=== PATIENT | male | born 1945 | race Caucasian/White ===

== ENCOUNTER 2017-08-10 19:45 | Inpatient (IN) | payer OTHER ==
[~2017-08-10] VITALS: Ht 177.8 cm; Wt 89.8 kg
--- NOTE | ~2017-08-10 | HC ---
[facility] [place] [address] CONSULTATION Name: ALLAN WAY Room #: 243-P [facility] IN M.R.#: [id number] Admission: 08/10/17 Attend Phys: Ellyn Xavier Discharge: 08/12/17 Date of : 41 Report #: [id number] THIS REPORT FOR: //name// CC: Andrew Sandoval REASON FOR CONSULTATION: Elevated creatinine. REASON FOR PRESENTATION: Transferred from [facility] for shortness of breath and some regular heart issues. HISTORY OF PRESENT ILLNESS: The patient is a 71-year-old who was at [facility] and then transferred to [place]. Apparently, he presented to [facility] with some pulmonary symptoms and ended up having a thoracentesis with a chest tube. The pleural studies were consistent with an exudative pleural effusion. I do not have the exact details of the results. I do not have the cytology. As I have stated, he had a right chest tube placed and was transferred to [place] for further evaluation. CT actually revealed numerous pulmonary nodules of unknown significance along with hydropneumothorax. This also showed lymph nodes. He was on the hypertensive side. I do not know what his previous baseline creatinine is; however, on presentation, he was found to have an elevated creatinine. The patient has admitted to poor health in the last couple of years. He also admitted to weight loss over the last few years. He is known to have a neurogenic bladder for which he uses self-catheterizations. He is also known to have sarcoidosis, as he stated. PAST MEDICAL HISTORY: 1. Cardiomyopathy with ejection fractions of around 20%. 2. Sarcoidosis. 3. Hypertension. 4. Diabetes mellitus. 5. Chronic myelocytic leukemia. 6. Chronic kidney disease. 7. Sacral wounds. 8. Bladder cancer. 9. Neurogenic bladder. PAST SURGICAL HISTORY: 1. Tonsillectomy. 2. Adenoidectomy. 3. Appendectomy. 4. Pacemaker. ALLERGIES: No known drug allergies. MEDICATIONS ON PRESENTATION: [facility] [address] [place] [address] CONSULTATION Name: ALLAN WAY Room #: [facility]..#: [id number] Admission: 08/10/17 Attend Phys: Ellyn Xavier Discharge: 08/12/17 Date of : 41 Report #: [id number] 1. Paxil. 2. Lasix. 3. Zantac. 4. Losartan. 5. Amiodarone. 6. Pulmicort. 7. Zyvox. 8. Lipitor. SOCIAL HISTORY: He has been at [facility] and then moved to [place]. He used to smoke cigar. He is an ex-cigarette smoker for about 12 years. REVIEW OF SYSTEMS: The patient is currently lethargic and is not able to provide me with the review of system. PHYSICAL EXAMINATION: GENERAL: He is lethargic. VITAL SIGNS: Blood pressure of 97/53. Pulse rate is 81. HEAD AND NECK: Using his accessory muscles. CHEST: Crackles bilaterally, with decreased air entry. Chest tube in place. CARDIOVASCULAR: No rub. Pacemaker in place. ABDOMEN: Soft, nontender. LOWER EXTREMITIES: With +1 edema with some chronic venous stasis changes. LABORATORY DATA: Laboratory values from today reveal that his creatinine is down to 3.5 from 3.7. His BUN was 141 yesterday and is down to 130. He had sodium of 128. His alkaline phosphatase was elevated at 739. He has a white blood cell count of 13,000. IMAGING: Including his chest x-ray and CT were reviewed. ASSESSMENT, IMPRESSION AND PLAN: 1. Acute kidney injury. 2. Chronic kidney disease. 3. Numerous cancers, including bladder cancer, chronic myelocytic leukemia. 4. Hypertension. 5. Acute kidney injury. 6. Cardiomyopathy. 7. Pulmonary nodules. 8. Extremely high alkaline phosphatase. 9. Anemia. 10. Hyponatremia. 11. Hydropneumothorax. 12. The patient is extremely ill and his acute kidney injury is related to over-diuresis and hypertension. All of the nephrotoxin medications and the diuretic had been held. He was started on IV fluid. [facility] [address] [place] [address] CONSULTATION Name: ALLAN WAY Room #: 243-P [facility] IN M.R.#: [id number] Admission: 08/10/17 Attend Phys: Ellyn Xavier Discharge: 08/12/17 Date of : 41 Report #: [id number] 13. Carvalho catheter is in place and he is making some urine. 14. Continue with IV fluids. 15. So many comorbid conditions, including bladder cancer, CML, new pulmonary nodules and elevated alkaline phosphatase. We need to address the code status of the patient with the family and address long-term care plans for him. <ELECTRONICALLY SIGNED> By: Betsey Fontaine MD 08/12/17 2146 1236 0023 Betsey Fontaine MD /nt
--- NOTE | ~2017-08-10 | EKG ---
[address] [employer] [place] [address] ELECTROCARDIOGRAM REPORT Name: ALLAN WAY Room #: 243-P ADM IN M.R.#: [id number] Admission: 08/10/17 Attend Phys: Ellyn Xavier Discharge: Date of : 41 Report #: [id number] THIS REPORT FOR: //name// [facility] ED Test Date: 2017-08-10 Test Time: 20:05:12 Pat Name: ALLAN WAY Department: Room: [facility] Gender: M [employer] Librarian: [id number] : 1945 Requested By: Collette Rodríguez Order Number: [id number] MD: Too Carbajal Measurements Intervals [place] Rate: 90 P: 0 MN: QRS: 116 QRSD: 225 T: -64 QT: 521 QTc: 638 Interpretive Statements A-V dual-paced complexes w/ some inhibition No further analysis attempted due to paced rhythm Compared to ECG 04/03/2012 07:07:40 No significant changes Electronically Signed On 08-11-2017 16:22:40 CDT by Too Carbajal [email or web address] <ELECTRONICALLY SIGNED> By: Too Carbajal MD, [facility] 08/11/17 1622 04 04 Too Carbajal MD, [facility] /EPI
--- NOTE | ~2017-08-10 | 2DMMODE ---
[facility] [place] [address] 2 D/M-MODE ECHOCARDIOGRAM Name: ALLAN WAY Room #: 457-P ADM IN M.R.#: [id number] Admission: 08/10/17 Attend Phys: Ellyn Jonas Discharge: Date of : 41 Date of Service: 08/11/17 1100 Report #: [id number] THIS REPORT FOR: //name// APPROVED REPORT Study performed: 08/11/2017 10:15:53 EXAM: Comprehensive 2D, Doppler, and color-flow Echocardiogram Patient Location: Bedside Room #: [facility] Status: routine BSA: 2.07 HR: 80 bpm BP: 100/52 mmHg Other Information Study Quality: Fair Indications Cardiomyopathy Left Ventricle Left ventricle is dilated. Abnormal septal motion consistent with paced rhythm. There is global hypokinesis of the left ventricle. There is normal left ventricular wall thickness. Left ventricular ejection fraction is severely decreased. LVEF is 25-30%. Right Ventricle Right ventricle is dilated. Right ventricle is hypokinetic. Device lead is present in the right ventricle. Atria Left atrium is dilated. Right atrium is dilated. Device lead is present in the right atrium. Aortic Valve The aortic valve is normal in structure. Aortic valve is calcified. Mitral Valve The mitral valve is normal in structure. Tricuspid Valve The tricuspid valve is normal in structure. [facility] [address] [place] [address] 2 D/M-MODE ECHOCARDIOGRAM Name: RAYNAALLAN Maria G Room #: 457-P ADM IN M.R.#: [id number] Admission: 08/10/17 Attend Phys: Ellyn Jonas Discharge: Date of : 41 Date of Service: 08/11/17 1100 Report #: [id number] Pulmonic Valve Pulmonic valve is not well visualized. Great Vessels Aortic root is not well visualized. IVC is not visualized. Pericardium There is no pericardial effusion. Moderate right pleural effusion <Conclusion> LVEF is 25-30%. Abnormal septal motion consistent with paced rhythm. There is global hypokinesis of the left ventricle. Right ventricle is dilated. Right ventricle is hypokinetic. Left atrium is dilated. Right atrium is dilated. Device lead is present in the right atrium. There is no pericardial effusion. Moderate right pleural effusion <ELECTRONICALLY SIGNED> By: Levy Sanz MD, FACC 08/11/17 1100 1100 1100 Levy Sanz MD, FACC /INF
--- NOTE | ~2017-08-10 | CNG ---
[facility] [place] [address] CYTO-NONGYN REPORT PROCEDURE Name: ALLAN HARTMAN Room #: 243-P [facility] IN M.R.#: [id number] Admission: 08/10/17 Date of : 41 Discharge: 08/12/17 Report #: [id number] Path Case #: [id number] CYTOPATHOLOGY REPORT COLLECTION DATE: 08/11/2017 RECEIVED DATE: 08/12/2017 SUBMITTING PHYS: Dr. Andrew Mares OTHER PHYS: Dr. Ellyn Sandoval CLINICAL HISTORY: Pleural effusion; Acute on chronic kidney SPECIMEN(S) RECEIVED: A.Pleural fluid, Right B.Pleural fluid,Left * * * * * * * * * * * * FINAL DIAGNOSIS: A. Pleural fluid, Right: - No malignant epithelial cells identified. Paucicellular specimen with rare mesothelial cells and occasional acute and chronic inflammatory cells present. B. Pleural fluid, Left: - No malignant epithelial cells identified. Paucicellular specimen with rare mesothelial cells and occasional acute and chronic inflammatory cells present. PATHOLOGIST: Ave Dickens M.D. REPORT ELECTRONICALLY SIGNED BY: Ave Dickens M.D. DATE/TIME: 08/13/2017 15:56 * * * * * * * * * * * * GROSS PATHOLOGY: A. Pleural fluid, Right: The specimen is submitted unfixed, labeled "Allan Hartman". Received by the Cytology Department is 15 mL of cloudy red fluid. One ThinPrep slide and a formalin fixed cell block were prepared. B. Pleural fluid,Left: The specimen is submitted unfixed, labeled "DevanAllan". Received by the Cytology Department is ten mL of cloudy red fluid. One ThinPrep slide and a formalin fixed cell block were prepared. (mm 08.12.2017) SAFETY PERSON(S): MAIK Perez(ASCP) INITIAL CPT CODE(S): A; 27824, 73358 B; 46515, 00546 Professional services performed by [facility] at [address] [address] CYTO-NONGYN REPORT PROCEDURE Name: ALLAN HARTMAN Room #: 243-P DIS IN M.R.#: [id number] Admission: 08/10/17 Date of : 41 Discharge: 08/12/17 Report #: [id number] Path Case #: [id number] , [place] [address] Technical services performed by [facility] at [address] [place] [address], [address], [place] [address]. [address], [facility] [address] [place] [address] PHONE: [phone] DIRECTOR: Rashard Arredondo M.D. * * * END OF REPORT * * *
--- NOTE | ~2017-08-10 | HC ---
[facility] [place] [address] CONSULTATION Name: ALLAN WAY Room #: 243-P ADM IN M.R.#: [id number] Admission: 08/10/17 Attend Phys: Ellyn Xavier Discharge: Date of : 41 Report #: [id number] THIS REPORT FOR: //name// CC: Andrew Sandoval DATE OF SERVICE: 08/11/2017 REASON FOR CONSULTATION: Bilateral effusions. IMPRESSION: 1. Left hydropneumothorax. 2. Left endobronchial mucus, question mass, which appeared to be present also while at [place]. 3. Right effusion. 4. Hmqgq-dn-xncxzgd kidney injury. 5. Cardiomyopathy. 6. Paroxysmal atrial fibrillation. 7. History of sarcoidosis. 8. Chronic myeloid leukemia by report. PLAN: Discussed with patient, may do bronchoscopy in a.m. We will obtain films from [facility] as well as the films from [place]. We will do pulmonary toilet for now. DVT and ulcer prophylaxis per primary. HISTORY OF PRESENT ILLNESS: A 71-year-old male, relates 6 weeks ago had a pacemaker at [facility], became ill, went to [place], had fluid on his lungs, catheter was placed and we discussed this. He was then sent to [place] and was sent here because of PVCs, admitted because of pleural effusions and significant atelectasis. ALLERGIES: None known. MEDICATIONS: Have included B12, fluoxetine, ranitidine, losartan, Cipro, allopurinol, Lasix, amiodarone, acetylcysteine, Pulmicort, Zetia, Lipitor. PAST SURGICAL HISTORY: Include tonsillectomy, adenoidectomy, appendectomy, cardiac catheterization, pacemaker. SOCIAL HISTORY: Negative tobacco, negative ETOH. REVIEW OF SYSTEMS: Positive for ALFRED, unable to tolerate CPAP. Cardiomyopathy, CHF, hypertension, cough, shortness of breath, sarcoidosis, GERD, neurogenic bladder, pneumonia in the past. [facility] [address] [place] [address] CONSULTATION Name: ALLAN WYA Room #: [address] [place] [address] [place] .R.#: [id number] Admission: 08/10/17 Attend Phys: Ellyn Xavier Discharge: Date of : 41 Report #: [id number] PHYSICAL EXAMINATION: VITAL SIGNS: Temperature 98.3, pulse 82, respiratory rate is 20, BP 97/53. EYES: Negative icterus. NECK: Negative JVD. LUNGS: Decreased bilateral, catheter on left. HEART: Regular. ABDOMEN: Bowel sounds present. EXTREMITIES: Showed chronic change. LABORATORY DATA: Echo showed EF 25-30%. Lactate 3.2. A pH 7.45, pCO2 of 33, pO2 of 70 on 2.5 liters. Sodium 128, BUN 141, creatinine 3.7. BNP 9268. INR ____. Hemoglobin 8.7, white count 12.9, platelets 258. We will follow closely with you. By: 1520 0140 Andrew Mares MD /amy
--- NOTE | ~2017-08-10 | HC ---
[facility] [place] [address] CONSULTATION Name: ALLAN WAY Room #: 243-P [facility] IN M.R.#: [id number] Admission: 08/10/17 Attend Phys: Ellyn Xavier Discharge: Date of : 41 Report #: [id number] THIS REPORT FOR: //name// CC: Andrew Sandoval INFECTIOUS DISEASE CONSULTATION HISTORY OF PRESENT ILLNESS: The patient is a 71-year-old white man, initially hospitalized at [facility] where he undergoes right thoracentesis and placement of a left-sided pigtail catheter, subsequently transferred to [place] where he is found to have cardiac arrhythmias and sent to the Emergency Room at [facility]. He is admitted. A CT scan of the chest revealed significant atelectasis of the left lung and pleural effusion with a pigtail catheter. He does have multiple pulmonary nodules on the right lung as well as a right-sided pleural effusion that appears to be loculated. PAST MEDICAL HISTORY: Chronic respiratory failure. Sarcoidosis. Previous tonsillectomy in 1950, appendectomy in 1953. Urinary retention requiring self-catheterization, sarcoidosis. Previous episode of pneumonia, congestive heart failure, obstructive sleep apnea, intolerant to CPAP. Status post BiV ICD, [employer] pacemaker in 05/2012. There is a history of chronic disease, malnutrition, stage 3 sacral decubitus, diabetes mellitus. ALLERGIES: None listed. MEDICATIONS: The patient is on multivitamins, pantoprazole, amiodarone, linezolid 600 b.i.d., budesonide, acetylcysteine inhalation treatment, metoprolol, Atrovent and albuterol inhalation treatments, Zosyn 2.25 g IV every 8 hours, p.r.n. glucagon, p.r.n. ondansetron, p.r.n. acetaminophen. SOCIAL HISTORY: See H and P, old records. FAMILY HISTORY: See H and P, old records. REVIEW OF SYSTEMS: Poor historian, mainly complaining of significant shortness of breath. Cough and unable to move much bronchial secretions. PHYSICAL EXAMINATION: GENERAL: Chronically ill-appearing man. VITAL SIGNS: Temperature 98.1, pulse 66, respirations 24, BP as low as 88/48 up to 100/52, O2 saturation 92% on 4 L oxygen nasal cannula. HEENMT: Pupils reactive. Mouth edentulous. NECK: Supple. LUNGS: Rhonchi and crackles in both lung patel. HEART: S1, S2. No gallop or murmur. [address] [address] CONSULTATION Name: ALLAN WAY Room #: [address] [place] [address] [place] [facility].#: [id number] Admission: 08/10/17 Attend Phys: Ellyn Xavier Discharge: Date of : 41 Report #: [id number] ABDOMEN: Soft, no masses or megaly. GENITALIA AND RECTAL: Deferred. EXTREMITIES: No clubbing, cyanosis. NEUROLOGIC: Grossly within normal limits. LABORATORY DATA: Sodium 128, potassium 4.3, CO2 25, BUN 130, creatinine 3.5, alkaline phosphatase 739. Albumin 2.2 g/dL. NT-proBNP 9268. Pro time 11.5, INR 1.1. WBC 13,300; hemoglobin 8.7 g/dL; platelets 259,000. Urinalysis revealed proteinuria, microscopic hematuria. The urinalysis confirmed these findings and there is also bacteriuria present. The ABGs revealed pH 7.44, PCO2 of 32, pO2 70.3, bicarbonate 22.3, lactate 3.2. Urine culture ordered and results pending. RADIOLOGY EVALUATION: Repeat CT scan of the chest revealed left lung opacification, largely atelectasis with the recent main stem bronchus pleural effusion, complex with left hydropneumothorax and left pigtail catheter, numeral pulmonary nodules throughout the lungs, several of them calcified. Possible adrenal mass, most likely adenoma and gallstones noticed. ASSESSMENT: 1. Possible pneumonia. 2. Left lung atelectasis. 3. Pigtail catheter, left chest. 4. Pulmonary nodules in a person with a history of sarcoidosis. 5. Lactic acidosis. 6. Acute kidney injury on chronic kidney disease. SUGGESTIONS: Proceed with thoracentesis, place pigtail catheter, though I suspect that pleural effusion is loculated. For the time being, continue coverage with Zosyn and Zyvox, and I agree with the patient's transfer to ICU. Discussed the situation with Dr. Robbin Mares. Dr. Roger Leon, thank you for requesting my suggestions in the care of your patient. <ELECTRONICALLY SIGNED> By: Talha Ramirez MD 08/12/17 1049 1118 0015 Talha Ramirez MD /nt
--- NOTE | ~2017-08-10 | H ---
[facility] [address] HISTORY AND PHYSICAL Name: ALLAN WAY Room #: 243-P ADM IN M.R.#: [id number] Admission: 08/10/17 Attend Phys: Ellyn Xavier Discharge: Date of : 41 Report #: [id number] THIS REPORT FOR: //name// CC: Andrew Sandoval DATE OF SERVICE: 08/10/2017 DATE OF SERVICE: 08/10/2017 ATTENDING PHYSICIAN: Roger Lyon DO PRIMARY CARE PHYSICIAN: Dr. Jeremi Jones. CHIEF COMPLAINT: Shortness of air. HISTORY OF PRESENT ILLNESS: The patient is a 71-year-old male who was sent to [facility] by [facility]. He has only been there for about 24 hours after being discharged from [facility]. He was initially admitted at [place] for shortness of breath and was noted to have a large left pleural effusion. He ended up having a thoracentesis and 1600 mL of fluid was removed. This was found to be exudative. He then had recurrent effusions and underwent thoracentesis on the left as well as on the right. Then he had a chest tube placed on the left. Overall, he was still very weak and was sent to [place] for rehab. He just had a chest CT done at [place], which showed left hydropneumothorax and complete atelectasis on the left, concerning for a large endobronchial plug. There were also numerous indeterminate pulmonary nodules, right pleural effusion with possible loculated pleural fluid and mildly calcified enlarged mediastinal lymph nodes. He says he normally did not have any lung issues before his hospitalization at [place], but prior records did show that he had had sarcoidosis of the lungs in the past. He said he was treated with steroids over the years, but has been told he is in remission regarding this. Overall, he has had general decline and has been losing weight over the course of 2 years up to 100 pounds. He is denying any chest pain other than the pain right at his left chest tube site. His history is somewhat limited as he is a poor historian, but the [facility] records were reviewed. He does not think he has been having any fevers or chills. PAST MEDICAL HISTORY: Neurogenic bladder for which the patient self catheterizes, sarcoidosis of the lungs, nonischemic cardiomyopathy with an EF of 20%-25%, paroxysmal atrial fibrillation, hypertension, diabetes, chronic myelocytic leukemia, chronic kidney disease unknown stage, sacral wounds, protein-calorie malnutrition, bladder cancer. PAST SURGICAL HISTORY: Tonsillectomy, adenoidectomy, appendectomy, cardiac [facility] [address] [place] [address] HISTORY AND PHYSICAL Name: ALLAN WAY Room #: 243-P [facility] IN M.R.#: [id number] Admission: 08/10/17 Attend Phys: Ellyn Xavier Discharge: Date of : 41 Report #: [id number] catheterization, and defibrillator placement. ALLERGIES: No known drug allergies. HOME MEDICATIONS: Paxil 40 mg p.o. daily, Tylenol p.r.n., Zantac 75 mg at bedtime, losartan 100 mg daily, allopurinol 300 mg daily, Lasix 80 mg daily, carvedilol 3.125 mg b.i.d., amiodarone 100 mg b.i.d., acetylcysteine 2 mL b.i.d., Pulmicort 2 mL inhaled b.i.d., guaifenesin or Robitussin 600 mg b.i.d., Zofran p.r.n., multivitamin with iron 1 tab daily, Linezolid 600 mg per tube b.i.d., Lipitor 20 mg at bedtime, Ceftin 250 mg p.o. b.i.d., Pepcid 20 mg daily p.r.n., ipratropium inhaler q. 4 hours p.r.n. SOCIAL HISTORY: The patient had been living at home with his prior to his hospitalization at [place]. He normally uses a walker to ambulate. He says since he has been at [place] and at rehab, he really has not been ambulating. The patient still smokes cigars and 1 cigar will last about 3 days. He is an ex-cigarette smoker and smoked for about 12 years, up to 5-6 cigarettes per day. He drinks alcohol rarely. Denies any drug use. REVIEW OF SYSTEMS: As far as his history of CML, he follows with an oncologist at [facility], Dr. Luisana Lozano, and has been on Gleevec, which apparently is placed on hold with his recent hospitalization. He has also had bladder cancer and he has been followed by Oncology and is status post radiation and chemo for that. The patient also reports he has chronically low blood pressure. PHYSICAL EXAMINATION: GENERAL: The patient is an alert male, in no acute distress. VITAL SIGNS: Temperature is 36.7, heart rate 82, respirations 20, blood pressure is 103/41, oxygen 94% on room air. HEENT: PERRLA. Sclerae are nonicteric. Oral mucosa is pink and moist. NECK: Supple, no JVD noted. CARDIOVASCULAR: Normal S1, S2. No murmurs, rubs or gallops. RESPIRATORY: Breath sounds are clear bilaterally, although he does have a very loose nonproductive cough and rattle in the back of the throat that he cannot clear. His cough is very weak and breathing is nonlabored. There is also a left-sided chest tube, which is draining serosanguineous fluid. He does have diminished breath sounds on the left, but there is some air movement. ABDOMEN: Soft, nontender, nondistended with positive bowel sounds. VASCULAR: Trace bilateral lower extremity edema. Pedal pulses are 2+. NEUROLOGIC: The patient is alert, oriented x3, although he does keep his eyes closed during most of the assessment. He will follow commands and is moving everything appropriately. He does have some generalized weakness in the lower extremities. LABORATORY DATA: Sodium 128, potassium 4.2, BUN 141, creatinine is 3.7. Troponins negative. BNP 9268. INR 1.1. WBC is 12.9, hemoglobin 8.7, platelets [facility] [address] [place] [address] HISTORY AND PHYSICAL Name: ALLAN WAY Room #: 243-P [facility] IN [facility]#: [id number] Admission: 08/10/17 Attend Phys: Ellyn Xavier Discharge: Date of : 41 Report #: [id number] are 258. Chest x-ray showed a large infiltrate in the left lung with shift of the heart and mediastinum to the left ____. There is significant right pleural effusion or pleural thickening, diffuse patchy infiltrate. ASSESSMENT AND PLAN: 1. Left hydropneumothorax. A chest tube is already in place, this may not be draining correctly. There was concern on CT for large endobronchial plug. Pulmonary is consulted for possible bronchoscopy. Because he does have leukocytosis, we will continue with IV antibiotics and follow blood cultures. His lactate is mildly elevated as well. 2. Acute kidney injury on chronic kidney disease. Looking at the [facility] labs, his creatinine has slowly been elevated. His lactate is elevated as well. Continue IV fluids. Follow labs. 3. Hypotension. This may be due to infection, although he does not have any signs of sepsis. We will hold home blood pressure medications for now. According to the patient, he usually runs a low blood pressure in the 90s. 4. Nonischemic cardiomyopathy with an EF of 20%-25%. BNP is elevated, but we do not know his baseline. He does have a defibrillator in place. We will monitor status closely. 5. Chronic myelocytic leukemia. The patient is followed with Oncology at [facility]. Gleevec has been held. 6. Diabetes type 2.. Blood sugar is stable. Add sliding scale insulin and Accu-Cheks. 7. Paroxysmal atrial fibrillation. The patient is not on any current blood thinners. Continue amiodarone for rate control. 8. History of sarcoidosis of the lungs. According to the patient, this is in remission. 9. Deep venous thrombosis prophylaxis. Place SCDs. We will continue to follow the patient closely throughout the hospitalization and make changes based on the clinical status. <ELECTRONICALLY SIGNED> By: DARIO Lozoya 08/12/17 [id number] DARIO Lozyoa /amy
[~2017-08-10 19:45] MED LIST: ALLOPURINOL 30300 M2; CARVEDILOL12.5 MG PO; CIPRO250 M1 PO; COZAAR 50 MG TA50 M1 PO; FLUOXETINE HCL40 MG PO; FUROSEMIDE 40 M40 M1 PO; MUCINEX600 MG PO; PAIN & FEVER325 MG PO; VITAMIN B-12100 MC1; ZANTAC 7575 MG PO
[2017-08-10 19:47] VITALS: BP 103/41
[2017-08-10 21:19] LABS: HEMATOCRIT 24.6 % (42.0-52.0); HEMOGLOBIN 8.7 gm/dL (14.0-18.0); MCH 38.4 pg (26.0-34.0); MCHC 35.5 g/dL (28.0-37.0); MCV 108.3 fL (80.0-100.0); PLATELET COUNT 258 thou/uL (150-400); RBC 2.27 mil/uL (4.50-6.00); RDW 20.5 % (10.5-14.5); WBC 12.9 thou/uL (4.0-11.0)
[2017-08-10 21:22] LABS: MANUAL DIFF YES
[2017-08-10 21:35] LABS: APTT 26.4 Seconds (24.5-32.8); INR 1.1; PROTIME 11.5 Seconds (9.3-11.4)
[2017-08-10 21:36] LABS: CALCIUM 7.5 mg/dL (8.5-10.1); CREATININE 3.7 mg/dL (0.7-1.3); POTASSIUM 4.2 mmol/L (3.5-5.1)
[2017-08-10 21:38] LABS: TROPONIN-I 0.07 ng/mL (<0.04-0.07)
[2017-08-10 21:55] LABS: ABSOLUTE NEUTROPHILS 11.5 thou/uL (1.4-8.2); TOTAL CELL COUNT 100
[2017-08-10 21:56] LABS: ANISOCYTOSIS 2+; MACROCYTES 2+; POLYCHROMASIA 2+
[2017-08-10] MEDS ORDERED: IPRATROPIUM INH (22:00)
[2017-08-10] MEDS ORDERED: AMIODARONE HCL100 MG PO (22:01)
[2017-08-10] MEDS ORDERED: PULMICORT0.5 MG/2 M INH (22:02)
[2017-08-10] MEDS ORDERED: ACETYLCYST200 MG/1 M INH (22:02)
[2017-08-10] MEDS ORDERED: ROBITUSSIN100 MG/53 PO (22:03)
[2017-08-10] MEDS ORDERED: ZOFRAN2 MG/1 ML IV (22:04)
[2017-08-10] MEDS ORDERED: ZETIA10 MG PO (22:06)
[2017-08-10] MEDS ORDERED: UNICOMPLEX M TA1 TA1 PO (22:07)
[2017-08-10] MEDS ORDERED: LINEZOLID600 MG PER TUBE (22:09)
[2017-08-10] MEDS ORDERED: CEFUROXIME250 MG PO (22:10)
[2017-08-10] MEDS ORDERED: LIPITOR 20 MG T20 M1 PO (22:10)
[2017-08-10] MEDS ORDERED: PEPCID20 MG PER TUBE (22:12)
[2017-08-10] MEDS ORDERED: COMPAZINE10 MG PER TUBE (22:12)
[2017-08-10 22:42] LABS: ABG SAMPLE TYPE ARTERIAL; BE(vivo) -1.3 mmol/L (-2 to +3); HCO3 22.3 mmol/L (22.0-26.0); LACTATE 3.22 mmol/L (0.5-2.0); O2(CT) 12.4 mL/dL (15.0-23.0); O2Hb 92.9 % (92.0-98.0); PCO2 32.9 mmHg (35.0-45.0); PO2 70.3 mmHg (80.0-100.0); pH 7.449 (7.360-7.450); tCO2 23.3 mmol/L (24.0-30.0)
[2017-08-10 22:43] LABS: STICK SITE L.BRACHIAL
[2017-08-10 22:56] VITALS: BP 97/47
[2017-08-10 23:24] VITALS: BP 97/54
[2017-08-10 23:41] VITALS: BP 100/62
[2017-08-11] VITALS (19 sets, daily range): BP systolic 74–122; BP diastolic 42–69
[2017-08-11 04:12] LABS: URINE BILIRUBIN NEGATIVE (Negative); URINE BLOOD 3+ (Negative); URINE COLOR YELLOW; URINE GLUCOSE-RANDOM* NEGATIVE (Negative); URINE KETONES NEGATIVE (Negative); URINE PROTEIN (DIPSTICK) 1+ (Negative); URINE UROBILINOGEN 0.2 E.U./dl (0.2-1.0)
[2017-08-11 04:42] LABS: URINE LEUKOCYTES-REFLEX 1+ (Negative)
[2017-08-11 04:50] LABS: SQUAMOUS None Seen /LPF (0-3)
[2017-08-11 04:52] LABS: CRYSTALS None Seen /LPF (None Seen)
[2017-08-11 04:53] LABS: HYALINE CASTS 0-3 Few /LPF (None Seen); RENAL EPITHELIAL CELLS 0-3 Few /LPF (None Seen); TRANSITIONAL EPITHEL CELL >10 Many /LPF (None Seen)
[2017-08-11 05:40] LABS: HEMATOCRIT 25.6 % (42.0-52.0); HEMOGLOBIN 8.7 gm/dL (14.0-18.0); MCHC 33.8 g/dL (28.0-37.0); MCV 109.5 fL (80.0-100.0); RBC 2.34 mil/uL (4.50-6.00); RDW 20.6 % (10.5-14.5); WBC 13.3 thou/uL (4.0-11.0)
[2017-08-11 06:14] LABS: ALBUMIN 2.2 g/dL (3.4-5.0); CALCIUM 7.4 mg/dL (8.5-10.1); CREATININE 3.5 mg/dL (0.7-1.3); POTASSIUM 4.3 mmol/L (3.5-5.1); TOTAL BILIRUBIN 0.7 mg/dL (<0.1-1.0); TOTAL PROTEIN 5.9 g/dL (6.4-8.2)
[2017-08-11 15:55] LABS: URINE CREATININE-RANDOM* 62.8 mg/dL; URINE PROTEIN-RANDOM* 79.5 mg/dL (<11.9)
[2017-08-11 16:36] LABS: BF NUCLEATED CELLS 183; BF RBC 17230
[2017-08-11 16:37] LABS: COLOR RED
[2017-08-11 16:38] LABS: CLARITY CLOUDY; TOTAL VOLUME 60 mL
[2017-08-11 16:38] LABS: BF NUCLEATED CELLS 112; BF RBC 27840
[2017-08-11 16:39] LABS: CLARITY CLOUDY; COLOR RED; TOTAL VOLUME 60 mL
[2017-08-11 18:11] LABS: BF COMMENTS 2 MONOCYTES; BF MACROPHAGE 3; BF NEUTROPHILS 43; MANUAL DIFF YES
[2017-08-11 18:11] LABS: BF COMMENTS 3 MONOCYTES; BF MACROPHAGE 1; BF NEUTROPHILS 56; MANUAL DIFF YES
[2017-08-12] VITALS (67 sets, daily range): BP systolic 63–117; BP diastolic 34–79
[2017-08-12 04:36] LABS: HEMATOCRIT 22.6 % (42.0-52.0); HEMOGLOBIN 7.6 gm/dL (14.0-18.0); MANUAL DIFF YES; MCH 36.6 pg (26.0-34.0); MCHC 33.5 g/dL (28.0-37.0); MCV 109.2 fL (80.0-100.0); PLATELET COUNT 193 thou/uL (150-400); RBC 2.07 mil/uL (4.50-6.00); RDW 20.3 % (10.5-14.5); WBC 14.4 thou/uL (4.0-11.0)
[2017-08-12 04:55] LABS: ALBUMIN 1.8 g/dL (3.4-5.0); CREATININE 3.2 mg/dL (0.7-1.3); MAGNESIUM 2.5 mg/dL (1.8-2.4); PHOSPHORUS 5.2 mg/dL (2.5-4.9); POTASSIUM 4.1 mmol/L (3.5-5.1); TOTAL BILIRUBIN 0.7 mg/dL (<0.1-1.0); TROPONIN-I 0.08 ng/mL (<0.04-0.07)
[2017-08-12 04:58] LABS: ABG SAMPLE TYPE ARTERIAL; BE(vivo) -2.8 mmol/L (-2 to +3); HCO3 21.6 mmol/L (22.0-26.0); LACTATE 2.62 mmol/L (0.5-2.0); O2(CT) 10.9 mL/dL (15.0-23.0); O2Hb 91.8 % (92.0-98.0); PCO2 35.6 mmHg (35.0-45.0); pH 7.401 (7.360-7.450); sO2 93.5 % (92.0-98.0); tCO2 22.7 mmol/L (24.0-30.0)
[2017-08-12 04:59] LABS: STICK SITE R.RADIAL
[2017-08-12 05:13] LABS: ABSOLUTE NEUTROPHILS 13.8 thou/uL (1.4-8.2); ANISOCYTOSIS 2+; HOWELL-JOLLY BODIES SEVERAL; MACROCYTES 2+; POLYCHROMASIA 1+; TOTAL CELL COUNT 100
[2017-08-12 14:12] LABS: BODY FLUID ALBUMIN 1.1 g/dL (()); BODY FLUID AMYLASE 31 U/L (()); BODY FLUID GLUCOSE 111 mg/dL (()); BODY FLUID LDH 759 IU/L (()); BODY FLUID PROTEIN 2.2 g/dL (())
[2017-08-12 14:12] LABS: BODY FLUID ALBUMIN 1.5 g/dL (()); BODY FLUID AMYLASE 33 U/L (()); BODY FLUID GLUCOSE 107 mg/dL (()); BODY FLUID LDH 1248 IU/L (()); BODY FLUID PROTEIN 2.9 g/dL (())
== END 2017-08-12 15:35 | disposition short-term general hospital (02) | DRG 177 ==
LOC: ER 19:45 → 4W 22:41 → EROBS 22:41 → 4W 23:23 → ICU 08-11 12:31
PROVIDERS: Emergency Medicine; Hospitalist; Internal Medicine Pulmonary Disease; Nurse Practitioner Acute Care; Radiology Diagnostic Radiology
PROC: 0W9B30Z Drainage of Left Pleural Cavity with Drainage Device, Percutaneous Approach (ICD-10-PCS; principal; 2017-08-11)
PROC: 0WHB33Z Insertion of Infusion Device into Left Pleural Cavity, Percutaneous Approach (ICD-10-PCS; principal; 2017-08-11)
PROC: 02HV33Z Insertion of Infusion Device into Superior Vena Cava, Percutaneous Approach (ICD-10-PCS; principal; 2017-08-11)
DX: J15.6 Pneumonia due to other Gram-negative bacteria (principal); N17.0 Acute kidney failure with tubular necrosis; J90 Pleural effusion, not elsewhere classified; I13.0 Hypertensive heart and chronic kidney disease with heart failure and stage 1 through stage 4 chronic kidney disease, or unspecified chronic kidney disease; J96.10 Chronic respiratory failure, unspecified whether with hypoxia or hypercapnia; J98.11 Atelectasis; E87.2 Acidosis; C93.10 Chronic myelomonocytic leukemia not having achieved remission; E87.1 Hypo-osmolality and hyponatremia; J94.8 Other specified pleural conditions; I42.8 Other cardiomyopathies; I50.22 Chronic systolic (congestive) heart failure; D86.9 Sarcoidosis, unspecified; G47.33 Obstructive sleep apnea (adult) (pediatric); E11.22 Type 2 diabetes mellitus with diabetic chronic kidney disease; R91.1 Solitary pulmonary nodule; D64.9 Anemia, unspecified; I48.0 Paroxysmal atrial fibrillation; I95.9 Hypotension, unspecified; Z90.49 Acquired absence of other specified parts of digestive tract; Z85.51 Personal history of malignant neoplasm of bladder; Z95.0 Presence of cardiac pacemaker
CPT/HCPCS: 10045; 10078